=== PATIENT | female | born 1970 | race Caucasian/White ===

== ENCOUNTER 2020-01-27 09:29 | Observation (INO) ==
--- NOTE | 2019-11-01 13:16 | PAT Medication Instructions ---
Medication Instructions Date of Service November 01, 2019 Home Medications Medication Instructions Recorded ferrous sulfate 325 mg (65 mg 325 mg PO BID #60 tab 08/29/19 iron) tablet zolpidem 10 mg tablet 10 mg PO HS PRN #30 tab 10/07/19 dextroamphetamine-amphetamine 20 20 mg PO BID #60 tab 10/31/19 mg tablet ferrous sulfate 325 mg (65 mg iron) tablet 325 mg PO BID zolpidem 10 mg tablet 10 mg PO HS PRN meloxicam 7.5 mg tablet 7.5 mg PO DAILY PRN dextroamphetamine-amphetamine 20 mg tablet 20 mg PO BID ASK your surgeon for instructions meloxicam 7.5 mg tablet 7.5 mg PO DAILY PRN DO NOT take the morning of surgery ferrous sulfate 325 mg (65 mg iron) tablet 325 mg PO BID dextroamphetamine-amphetamine 20 mg tablet 20 mg PO BID Take evening before surgery ferrous sulfate 325 mg (65 mg iron) tablet 325 mg PO BID zolpidem 10 mg tablet 10 mg PO HS PRN (if needed) dextroamphetamine-amphetamine 20 mg tablet 20 mg PO BID THEN NOTHING TO EAT OR DRINK AFTER MIDNIGHT Other Notes If you have any questions please call us at [phone] or [phone] or [phone] or [phone]
[2020-01-22 15:37] LABS: Appearance Urine Clear (Clear); Bilirubin Urine Negative (Negative); Blood Urine Negative (Negative); Color Urine Yellow; Glucose Urine UA Negative (Negative); Ketones Urine Negative (Negative); Leukocyte Esterase Urine Negative (Negative); Nitrite Urine Negative (Negative); Protein Urine Negative (Negative); Specific Gravity Urine 1.011 (1.000-1.030); Urobilinogen Urine Negative (Negative); pH Urine 6.5 (4.5-7.5)
[2020-01-22 15:38] LABS: Basophils # (auto) 0.04 K/uL (0-0.2); Basophils % (auto) 0.6 %; Eosinophils # (auto) 0.08 K/uL (0-0.5); Eosinophils % (auto) 1.1 %; Hematocrit (blood only) 33.7 % (37-47); Hemoglobin 10.7 g/dL (12.0-16.0); Immature Granulocytes # (auto) 0.01 K/uL (0.00-0.02); Immature Granulocytes % (auto) 0.1 %; Lymphocytes # (auto) 1.53 K/uL (1.2-3.4); Lymphocytes % (auto) 21.4 %; Mean Corpuscular Hemoglobin 26.8 pg (25-34); Mean Corpuscular Hgb Conc 31.8 g/dL (32-36); Mean Corpuscular Volume 84.5 fL (80-100); Mean Platelet Volume 10.2 fL (7.4-10.4); Monocytes # (auto) 0.53 K/uL (0.11-0.59); Monocytes % (auto) 7.4 %; Neutrophils # (auto) 4.97 K/uL (1.4-6.5); Neutrophils % (auto) 69.4 %; Platelet Count 353 K/uL (130-400); RDW Coefficient of Variation 17.3 % (11.5-14.5); RDW Standard Deviation 54.2 fL (36.4-46.3); Red Blood Count 3.99 M/uL (4.2-5.4); White Blood Count 7.16 K/uL (4.8-10.8)
[2020-01-22 15:39] LABS: Pregnancy Test, Urine Negative (Negative)
[2020-01-22 15:50] LABS: Blood Urea Nitrogen 7 mg/dl (7-18); Calcium 9.4 mg/dl (8.5-10.1); Carbon Dioxide 29 mmol/L (21-32); Chloride 105 mmol/L (98-107); Est GFR (African American) 120.5; Est GFR (Non-African American) 103.9; Glucose 89 mg/dl (70-99); Potassium 3.5 mmol/L (3.5-5.1); Sodium 138 mmol/L (136-145)
--- NOTE | 2020-01-23 09:45 | Anesthesiology Consultation ---
Date of Service January 23, 2020 Assessment & Plan (1) Encounter for pre-operative examination: Chart Review Chart Review: Acceptable Risk for Surgery (pending 01/22 Covid results ) and Patient NOT seen in Pre Admission Testing - Check test AM DOS Per nursing assessment 01/22/20, pt resides in [facility]. 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 No known contact with PUIs or Covid positive people. No current Covid related symptoms. Covid testing done 01/23/20- results pending D&C, hysteroscopy 10/28/19= Done under [facility] with LMA #4. Atraumatic. History Surgery Operation Date: 11/29/19 12:10 Proposed Procedures p Robotic Total Laparoscopic Hysterectomy - Glenna Christiansen DO Operation Date: 01/27/20 12:10 Proposed Procedures p Robotic Total Laparos Hysterectomy - Glenna Christiansen DO Height/Weight Height: 5 ft 8 in Weight: 83.461 kg Allergies Allergy/AdvReac Type Severity Reaction Status Date / Time hydrocodone Allergy Unknown ITCHY Verified 01/22/20 16:18 methylparaben Allergy Unknown RASH WITH Verified 01/22/20 16:18 SOME SHAMPOOS mushroom Allergy Unknown Anaphylaxis Verified 01/22/20 16:18 tramadol AdvReac Severe Vomiting Verified 01/22/20 16:18 escitalopram [From Lexapro] AdvReac Unknown " MEAN" Verified 01/22/20 16:18 Medications Home Medications Medication Instructions Recorded Confirmed Last Taken ferrous sulfate 325 mg (65 mg 325 mg PO BID #60 tab 08/29/19 01/22/20 10/27/19 iron) tablet cyclobenzaprine 10 mg tablet 10 mg PO HS #60 tab 12/26/19 01/22/20 Unknown meloxicam 7.5 mg tablet 7.5 mg PO DAILY PRN #60 tab 12/26/19 01/22/20 Unknown dextroamphetamine-amphetamine 20 20 mg PO BID #60 tab 01/06/20 01/22/20 Unknown mg tablet zolpidem 10 mg tablet 10 mg PO HS PRN #30 tab 01/06/20 01/22/20 Unknown Past Medical History Medical History (Updated 01/23/20 @ 09:38 by Vanessa Townsend PA-C) ADHD Insomnia Migraine Recurrent major depressive disorder hx post depression Scoliosis MILD Seizure-like activity 1 GRAND MAL SEIZURE 5-6 YRS AGO-NONE SINCE-NO MEDS-F/U PCP Past Surgical History Surgical History History of D&C X3 History of tubal ligation Nausea and vomiting after administration of anesthetic agent [place] teeth extracted Social History Smoking Status: Never smoker Do You Dip or Chew Tobacco: No Hx Alcohol Use: Yes Alcohol type: hard liquor alcohol intake frequency: holidays/special occasions only Hx Substance Use: No Testing Laboratory Results 01/22/20 13:53 01/22/20 13:53 Urine Color Yellow 01/22/20 14:08 Urine Appearance Clear (Clear) 01/22/20 14:08 Urine pH 6.5 (4.5-7.5) 01/22/20 14:08 Ur Specific [place] 1.011 (1.000-1.030) 01/22/20 14:08 Urine Protein Negative (Negative) 01/22/20 14:08 Urine Glucose (UA) Negative (Negative) 01/22/20 14:08 Urine Ketones Negative (Negative) 01/22/20 14:08 Urine Nitrite Negative (Negative) 01/22/20 14:08 Ur Leukocyte Esterase Negative (Negative) 01/22/20 14:08 Urine Test Negative (Negative) 01/22/20 14:08 Blood Type A Positive 01/22/20 13:53 Antibody Screen POSITIVE A 01/22/20 13:53 01/22/20 14:08 Urine Test Negative
[~2020-01-27 09:29] MED LIST: CEFAZOLIN 2000MG 2,000 MG/15 ML SYR IV SCH; LR 15ML/HR IV SCH
[2020-01-27] MEDS ORDERED: fentaNYL citrate 100 MCG/2 ML VIAL ONE ×2 (11:38→14:31)
[2020-01-27] MEDS ORDERED: MIDAZOLAM HCL 1 MG/ML 2ML VIAL ONE (11:38)
[2020-01-27] MEDS ORDERED: ONDANSETRON INJ 2 MG/ML 2 ML VIAL IV PRN ×2 (11:57→16:47)
[2020-01-27] MEDS ORDERED: ATROPINE SULFATE 0.1 MG/ML 10ML SYR IV PRN (11:57)
[2020-01-27] MEDS ORDERED: PROMETHAZINE HCL 6.25 MG in SODIUM CHLORIDE 0.9% 50 ML IV PRN (11:57)
[2020-01-27] MEDS ORDERED: ePHEDrine sulfate 50 MG/ML AMP IV PRN (11:57)
--- NOTE | 2020-01-27 13:41 | History & Physical Bridge Note ---
Date of Service January 27, 2020 History & Physical Bridge Note I have examined the patient, reviewed the History & Physical and in the interval since the performance of the History & Physical I have noted the following changes of clinical significance: no changes noted
[2020-01-27] MEDS ORDERED: BUPIVACAINE 0.5 % 5 MG/1 ML MPF 30ML VIAL ONE (13:59)
[2020-01-27] MEDS ORDERED: TISSEEL FIBRIN SEALANT 10ML TOP ONE (14:31)
[2020-01-27] MEDS ORDERED: LIDOCAINE HCL 2% 2 ML VIAL/AMP(20MG/ML) INFIL ONE (14:32)
[2020-01-27] MEDS ORDERED: LARYING-O-JET KIT (LTA) ONE (14:32)
[2020-01-27] MEDS ORDERED: PROPOFOL IV EMULSION 10 MG/ML 20 ML VIAL IV ONE (14:32)
[2020-01-27] MEDS ORDERED: NEOSTIGMINE METHYLSULFATE 5 MG/5 ML SYR ONE (14:33)
[2020-01-27] MEDS ORDERED: PHENYLEPHRINE 100MCG/ML 5ML SYR ONE (14:33)
[2020-01-27] MEDS ORDERED: KETOROLAC 30 MG/ML VIAL ONE (14:33)
[2020-01-27] MEDS ORDERED: ONDANSETRON INJ 2 MG/ML 2 ML VIAL ONE (14:33)
[2020-01-27] MEDS ORDERED: DEXAMETHASONE SOD INJ 4 MG/ML VIAL ONE (14:33)
[2020-01-27] MEDS ORDERED: GLYCOPYRROLATE 0.2 MG/ML VIAL ONE (14:33)
[2020-01-27] MEDS ORDERED: ROCURONIUM BROMIDE 10 MG/ML 5 ML VIAL ONE ×3 (14:33→16:01)
[2020-01-27] MEDS ORDERED: METHYLENE BLUE 0.5% 10 ML VIAL ONE (14:33)
[2020-01-27] MEDS ORDERED: ePHEDrine sulfate 50 MG/ML SYR ONE (14:33)
[2020-01-27] MEDS ORDERED: METHYLENE BLUE 0.5% 10 ML VIAL IV SCH (14:45)
--- NOTE | 2020-01-27 16:41 | Operative Report ---
PG Post Operative Report Pre & Post Diagnosis Operation Date: 01/27/20 12:10 Pre-Op Diagnosis: Menorrhagia Post-Op Diagnosis: Menorrhagia I identified the patient and participated in the time-out.: Yes Procedure Operation Date: 01/27/20 12:10 Actual Procedures p Robotic Total Laparoscopic Hysterectomy, Bilateral Salpingectomies, Cystoscopy - Glenna Christiansen DO Surgeon Glenna Christiansen, Real Estate Rental Agent none Estimated Blood Loss 10 Findings Consistent with Post-Op Diagnosis Normal appearing uterus, ovaries. Tubes s/p tubal ligation. Adhesions between tubes/peritoneum. Adhesions uterus to anterior abdominal wall. Endometriosis implants. Specimens uterus/cervix. Bilateral fallopian tubes. Drains thorne clear yellow Anesthesia Type General Complications none Disposition Accompanied Patient To Recovery: No Disposition: Recovery Room Indications Patient is here with complaint of heavy bleeding. This has been a problem for the past few years. Getting progressively worse over the past 10 months. 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 Feels like the bleeding is always there, does not really have a menstrual cycle. Has been using a tampon every day for the past 2 years because she never knows when the bleeding will occur. Has been sent home from work multiple times because she is bleeding through clothing. She is finished with childbearing, has already had tubes tied, and would like a hysterectomy. She is not interested in endometrial ablation, nor is she interested in IUD or hormonal options. Description of Procedure This patient was seen in the preoperative holding area, risks benefits and alternatives to surgery reviewed. She elected to proceed with the case. Questions were answered. She had previously signed informed consent under no duress in the office. She was taken to the operating room, 2 g of Ancef was given preoperatively. She was placed under general anesthesia. She was prepared and draped in the usual sterile fashion with feet in yellowfin stirrups in the dorsolithotomy position. Timeout was confirmed. A Thorne catheter was placed in the bladder. The weighted speculum was placed in the vagina, and the cervix was visualized. Using bilateral stay sutures at 3 and 9:00, the uterine manipulator was placed. Gloves were changed, and attention was turned to the abdomen. A supraumbilical incision was made with a scalpel. The Optiview trocar was used to anterior the abdominal cavity under direct visualization. CO2 gas was used to insufflate the abdomen to 15 mmHg. The bilateral trocar sites were placed under direct visualization. Patient was placed in steep Trendelenburg position. The robot was docked. Upon visualization of the pelvis, there were multiple locations upon uterus and peritoneum of endometriosis implants. Additionally, the uterus had adhesions between it and the anterior aspect of the abdominal wall. The bilateral fallopian tubes were status post tubal ligation, and were adhesed to the pelvic sidewalls. Bilateral ureters were seen peristalsing in the pelvis. The anterior pelvic adhesions were gently taken down with sharp dissection. The left fallopian tube was coagulated and transected from its mesosalpinx and the adhesions, and was passed off to be sent to pathology. In a similar fashion, the right fallopian tube was removed. The left utero-ovarian ligament was coagulated and transected as well as the left round ligament. In similar fashion, the right utero-ovarian ligament and round ligaments were transected. The anterior leaf of the broad ligament was incised and dissected off the anterior aspect of the uterus. Bilateral uterine vessels were coagulated and transected. The uterus was amputated from the vagina at the level of the uterine manipulator using cautery. The uterus was then delivered through the vagina. The vaginal cuff was reapproximated using V lock suture in a running stitch. Excellent hemostasis was observed. Cystoscopy was then performed, and the Thorne catheter was removed and cystoscope inserted. The bladder appeared atraumatic. Bilateral urine jets were visualized from the ureteral orifices, aided with methylene blue. Catheter was replaced. Attention was then turned again to the pelvis. Tisseel coagulant was used on all raw edges. Excellent hemostasis was observed. The robot was undocked, all trochars removed, and the abdomen desufflated of CO2 gas. The suprapubic incision was reapproximated in the fascial layer using a [id number] stitch of 0 Vicryl. 0.25% Marcaine was used as a local anesthetic. All incisions were reapproximated using 4-0 Vicryl and Dermabond glue. The patient was cleaned, and was taken to the recovery area in stable and good condition. I attest to the content of the Intraoperative Record and any orders documented therein. Any exceptions are noted below.
[2020-01-27] MEDS ORDERED: PROMETHAZINE HCL 12.5 MG in SODIUM CHLORIDE 0.9% 50 ML IV PRN (16:47)
[2020-01-27] MEDS ORDERED: OXYCODONE/ACETAMINOPHEN 5mg/325mg TAB PO PRN (16:47)
[2020-01-27] MEDS: fentaNYL citrate 100 MCG/2 ML VIAL IV PRN ×4 (17:03→17:28)
[2020-01-27] MEDS: HYDROmorphone INJ 2 MG/ML SYR/VIAL IV PRN ×2 (17:35→17:43)
--- NOTE | 2020-01-27 17:52 | Anesthesiology Progress Note ---
Date of Service January 27, 2020 Anesthesia Post Procedure Vital Signs Vital Signs: Temp Pulse Pulse Resp BP Pulse Ox 01/27/20 17:45 62 23 124/68 100 01/27/20 17:35 66 19 120/73 100 01/27/20 17:25 48 L 12 108/56 L 97 01/27/20 17:15 49 L 12 117/52 L 100 01/27/20 17:05 53 L 13 127/74 100 01/27/20 16:55 65 12 127/72 100 01/27/20 16:49 97.7 F 74 16 121/74 100 01/27/20 10:01 97.9 F 16 L 16 123/73 99 Pain Intensity Abdomen: Pain Intensity: 5 Transfer of Care Handoff Completed per policy Notes Mental Status: alert / awake / arousable and participated in evaluation Patient Amnestic to Procedure: Yes Nausea / Vomiting: adequately controlled Pain: adequately controlled Airway Patency, RR, SpO2: stable & adequate BP & HR: stable & adequate Hydration State: stable & adequate Anesthetic Complications: no major complications apparent and Pt Satisfied with anesthetic care
[2020-01-27] MEDS: LACTATED RINGER'S 1,000 ML IV SCH ×2 (18:43→23:14)
[2020-01-27] MEDS: KETOROLAC 30 MG/ML VIAL IV PRN (19:45)
[2020-01-27] MEDS: OXYCODONE/ACETAMINOPHEN 5mg/325mg TAB PO PRN (21:16)
[2020-01-27] MEDS: DOCUSATE SODIUM 100 MG CAP PO SCH (23:14)
[2020-01-27] MEDS ORDERED: ZOLPIDEM TARTRATE 10 MG TAB PO PRN (23:48)
[2020-01-28] MEDS: KETOROLAC 30 MG/ML VIAL IV PRN (03:15)
[2020-01-28 06:25] LABS: Basophils # (auto) 0.02 K/uL (0-0.2); Basophils % (auto) 0.2 %; Eosinophils # (auto) 0.01 K/uL (0-0.5); Eosinophils % (auto) 0.1 %; Hematocrit (blood only) 28.4 % (37-47); Hemoglobin 9.1 g/dL (12.0-16.0); Immature Granulocytes # (auto) 0.03 K/uL (0.00-0.02); Immature Granulocytes % (auto) 0.3 %; Lymphocytes # (auto) 1.39 K/uL (1.2-3.4); Lymphocytes % (auto) 12.4 %; Mean Corpuscular Hemoglobin 27.1 pg (25-34); Mean Corpuscular Volume 84.5 fL (80-100); Mean Platelet Volume 9.4 fL (7.4-10.4); Platelet Count 292 K/uL (130-400); RDW Coefficient of Variation 16.9 % (11.5-14.5); RDW Standard Deviation 52.2 fL (36.4-46.3); Red Blood Count 3.36 M/uL (4.2-5.4); White Blood Count 11.25 K/uL (4.8-10.8)
[2020-01-28 06:49] LABS: BUN Creatinine Ratio 9.4 (10-20); Calcium 7.9 mg/dl (8.5-10.1); Creatinine Clr Calc Pharmacy 120.9 ml/min; Est GFR (African American) 123.6; Est GFR (Non-African American) 106.6; Potassium 3.6 mmol/L (3.5-5.1)
[2020-01-28] MEDS: OXYCODONE/ACETAMINOPHEN 5mg/325mg TAB PO PRN (07:43)
[2020-01-28] MEDS: DOCUSATE SODIUM 100 MG CAP PO SCH (07:43)
[2020-01-28] MEDS ORDERED: IBUPROFEN 600 MG TAB PO PRN (08:36)
--- NOTE | 2020-01-28 08:56 | Gynecologic Progress Note ---
Date of Service January 28, 2020 Assessment & Plan (1) S/P total hysterectomy: Doing well. Discharge home. Reviewed instructions. Followup at 2w, 6w postop. Rx sent to pharmacy. Admission and Anticipated Discharge Date Admission Date: January 27, 2020 Subjective POD#1 doing well. Ambulating, eating/drinking ok. Urinating well. Passing gas. Pain controlled with pain meds. No vaginal bleeding. Would like to go home. Physical Exam Physical Exam: Gen: AAOx3 NAD CV: RRR L: CTAB Abd: soft, nondistended. +BS. appropriately tender. Ext: EPCs on Results & Data ([facility]) Vital Signs (Past 12 Hours) Vital Signs Temp Pulse Pulse Resp BP Pulse Ox 01/28/20 03:25 36.8 C 79 16 103/55 L 97 01/27/20 23:20 36.4 C L 76 16 125/78 99 01/27/20 21:00 36.7 C 84 18 113/67
--- NOTE | 2020-01-28 08:59 | Discharge Summary ---
Date of Service January 28, 2020 Discharge Data Procedures Performed Operation Date: 11/29/19 12:10 <No data on this case meets the specified criteria> Operation Date: 01/27/20 12:10 Actual Procedures p Robotic Total Laparoscopic Hysterectomy, Bilateral Salpingectomies - Glenna Christiansen DO s Cystoscopy - Glenna Christiansen DO Hospital Course (1) S/P total hysterectomy: Doing well. Discharge home. Reviewed instructions. Followup at 2w, 6w postop. Rx sent to pharmacy. Coding Level of Care Code None Diagnoses S/P total hysterectomy Z90.710
[2020-01-28] MEDS ORDERED: AMPHETAMINE ASP/SULF/DEXTRAMPH 20 MG TAB PO SCH (09:00)
[2020-01-28] MEDS ORDERED: CYCLOBENZAPRINE HCL 10 MG TAB PO SCH (21:00)
== END 2020-01-28 10:00 | disposition home or self-care (01) ==
LOC: 4N 09:29 → ASU 09:29